=== PATIENT | male | born 1990 | race Two or more races ===

== ENCOUNTER 2017-11-21 19:56 | Emergency (ER) | payer BC ==
[~2017-11-21] VITALS: Ht 160 cm; Wt 74.8 kg
[2017-11-21 21:07] VITALS: BP 144/91
[2017-11-21 21:53] VITALS: BP 144/91
--- NOTE | 2017-11-21 22:55 | Emergency Room Report ---
History of Present Illness General Chief Complaint: General Complaint Source: Patient Present Illness HPI 26-year-old male presents ED for evaluation. Patient states that while driving tonight he felt a pinching sensation in his chest and felt shortly thereafter very anxious. States that he developed tingling sensation in his arms and legs. Patient states that this time he feels better. BP in triage was elevated. Patient notes that he was recently diagnosed with hypertension and started on blood pressure medication. Does not recall the name of it. States that he did not take it today. States he does have the medication at home. Denies chest pain or shortness of breath. States that recently he has been feeling anxious and having trouble sleeping at night. Denies alcohol or drug use. No other aggravating relieving factors. Denies any other associated symptoms Allergies: Coded Allergies: No Known Allergies (Unverified , 11/21/17) Patient History Past Medical History: HTN Past Surgical History: none Pertinent Family History: none Social History: Denies: smoking, alcohol use, drug use Immunizations: UTD Reviewed Nursing Documentation: PMH: Agreed; PSxH: Agreed Nursing Documentation-PMH Past Medical History: No History, Except For Hx Hypertension: Yes Physical Exam Vital Signs Date Time Temp Pulse Resp B/P (MAP) Pulse Ox O2 Delivery O2 Flow Rate FiO2 11/21/17 20:00 97.7 99 16 164/96 99 Room Air 97.7 Sp02 EP Interpretation: reviewed, normal General Appearance: no apparent distress, alert, GCS 15, non-toxic Head: normocephalic, atraumatic Eyes: bilateral eye normal inspection, bilateral eye PERRL ENT: hearing grossly normal, normal pharynx, no angioedema, normal voice Neck: full range of motion, supple/symm/no masses Respiratory: chest non-tender, lungs clear, normal breath sounds, speaking full sentences Cardiovascular #1: regular rate, rhythm, no edema Cardiovascular #2: 2+ carotid (R), 2+ carotid (L), 2+ radial (R), 2+ radial (L) , 2+ dorsalis pedis (R), 2+ dorsalis pedis (L) Gastrointestinal: normal bowel sounds, non tender, soft, non-distended, no guarding, no rebound Rectal: deferred Genitourinary: normal inspection, no CVA tenderness Musculoskeletal: back normal, gait/station normal, normal range of motion, non- tender Neurologic: alert, oriented x3, responsive, motor strength/tone normal, sensory intact, speech normal Psychiatric: judgement/insight normal, memory normal, mood/affect normal, no suicidal/homicidal ideation, no delusions, anxious Reflexes: 3+ bicep (R), 3+ bicep (L), 3+ tricep (R), 3+ tricep (L), 3+ knee (R) , 3+ knee (L) Skin: normal color, no rash, warm/dry, well hydrated Lymphatic: no adenopathy Medical Decision Making Diagnostic Impression: Primary Impression: Hypertension Qualified Codes: I10 - Essential (primary) hypertension Additional Impression: Anxiety ER Course Hospital Course 26 yo M present with chest pain, tingling sensations in arms/legs Differential diagnoses include: VT/unstable angina, hypertension, anxiety Clinical course Patient placed on stretcher. on patient monitor. After initial history, physical exam reveals male in no acute distress. Physical exam unremarkable EKGnormal sinus rhythm no acute ischemic changes interpreted by me Repeat blood pressure 144/91. Discussed findings with patient. Patient safe for discharge. I believe anxiety likely triggered his symptoms. 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 Based on description and starting with a "M", I believe he is taking metoprolol. Unable to locate in medication reconciliation I. I feel this is a highly complex case requiring extensive working including EKG/Rhythm strip, Xray/CT/US, Blood/urine lab work, repeat exams while in ED, and administration of strong opiates/narcotics for pain control, admission to hospital or close patient follow up. Diagnosis - anxiety, hypertension Stable and discharged to home. take meds as directed. Followup with PMD. Return to ED if symptoms recur or worse EKG Diagnostic Results Rate: normal Rhythm: NSR ST Segments: no acute changes ASA given to the pt in ED: No Rhythm Strip Diag. Results EP Interpretation: yes Rhythm: NSR, no PVC's, no ectopy Last Vital Signs Date Time Temp Pulse Resp B/P (MAP) Pulse Ox O2 Delivery O2 Flow Rate FiO2 11/21/17 21:53 98.5 102 20 144/91 100 Room Air Status: improved Disposition: HOME, SELF-CARE Condition: Stable Patient Instructions: Hypertension, [id number] Additional Instructions: take your medications as prescribed. followup with PMD [place],Mik MD Nov 21, 2017 22:55
--- NOTE | 2017-11-23 15:25 | Cardiology Report ---
APPROVED REPORT EKG Measurement Heart [id number] Sinus tachycardia Nonspecific T wave abnormality Abnormal ECG
== END 2017-11-21 21:45 | disposition home or self-care (01) ==
LOC: EMR 20:33
DX: I10 Essential (primary) hypertension (principal); F41.9 Anxiety disorder, unspecified
CPT/HCPCS: 93005; 99283